=== PATIENT | male | born 1990 | race Caucasian/White ===

== ENCOUNTER 2017-11-16 01:45 | Emergency (ER) | payer SELFPAY ==
--- NOTE | 2017-11-16 02:20 | ER Document Report ---
ED Psych Disorder / Suicide - General Chief Complaint: Psych Problem Stated Complaint: IVC Time Seen by Provider: 11/16/17 02:14 Mode of Arrival: Ambulatory Information source: Patient Notes: This is a 27-year-old man with an unspecified bipolar disorder who is brought in by the Global Clinical Leader as an IVC with paperwork filled out by the financial investment manager. Patient was reportedly threatening and hostile to his parents. The patient appears delusional and states that he is not sure why his parents are conspiring against him. 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 He denies any suicidal ideation he denies any homicidal ideation he denies any hallucinations. TRAVEL OUTSIDE OF THE [place] IN LAST 30 DAYS: No - HPI Patient complains to provider of: Aggression, Agitated Onset: Just prior to arrival Onset was: Sudden Quality of pain: No pain Severity: None Pain Level: Denies Suicide Risk Factors: Bipolar, Frightened friends/family Situational problems related to: Parent Injury to: No: Generalized, Abdomen, Ankle, Back, Breast, Buttocks, Chest, Elbow , Epigastric, Flank, Face, Finger, Foot, Hand, Head, Hip, Knee, Leg, Lower extremity, Mouth, Neck, Pelvic, Penis, Perineum, Rectum, Shoulder, Testicle, Thigh, Throat, Trunk, Upper extremity, Vagina, Wrist Normal mood: No Associated symptoms: Aggressive Similar symptoms previously: Yes Recently seen / treated by doctor: No - Related Data Allergies/Adverse Reactions: No Known Allergies Allergy (Unverified 06/20/15 00:47) Past Medical History - General Information source: Patient, Law Enforcement - Social History Smoking Status: Never Smoker Cigarette use (# per day): No Chew tobacco use (# tins/day): No Frequency of alcohol use: None Drug Abuse: None Lives with: Family Family History: Reviewed & Not Pertinent Patient has suicidal ideation: No Patient has homicidal ideation: No - Medical History Medical History: Negative Psychiatric Medical History: Reports: Hx Attention Deficit Hyperactivity Disorder - Treated for it but patient does not believe he has it, Hx Depression Surgical Hx: Negative - Immunizations Hx Diphtheria, Pertussis, Tetanus Vaccination: Yes Review of Systems - Review of Systems Constitutional: denies: Chills, Fever EENT: No symptoms reported Cardiovascular: No symptoms reported Respiratory: No symptoms reported Gastrointestinal: No symptoms reported Genitourinary: No symptoms reported Male Genitourinary: No symptoms reported Musculoskeletal: No symptoms reported Skin: No symptoms reported Hematologic/Lymphatic: No symptoms reported Neurological/Psychological: See HPI Physical Exam - Vital signs Vitals: Temp Pulse Resp BP Pulse Ox 98.6 F 97 15 144/82 H 97 11/16/17 02:05 11/16/17 02:05 11/16/17 02:05 11/16/17 02:05 11/16/17 02:05 Notes: Physical exam: GENERAL: 7-year-old man, alert and oriented 3, no acute distress HEAD: Atraumatic, normocephalic. EYES: Pupils equal round and reactive to light, extraocular movements intact, sclera anicteric, conjunctiva are normal. ENT: TMs normal, nares patent, oropharynx clear without exudates. Moist mucous membranes. NECK: Normal range of motion, supple without obvious mass or JVD. LUNGS: Breath sounds clear to auscultation bilaterally and equal. No wheezes rales or rhonchi. HEART: Regular rate and rhythm without murmurs, rubs or gallops. ABDOMEN: Soft, normoactive bowel sounds. No tenderness to palpation. No guarding, no rebound. No masses appreciated. EXTREMITIES: Normal range of motion, no pitting or edema. No clubbing or cyanosis. NEUROLOGICAL: Cranial nerves II through XII grossly intact. Normal speech, moving all extremities. PSYCH: Patient does appear to be delusional at this time. SKIN: Warm, Dry, normal turgor, no rashes or lesions noted. Course - Re-evaluation Re-evalutation: 11/16/17 03:23 The patient is medically stable for psychiatric transfer or discharge. - Vital Signs Vital signs: Temp Pulse Resp BP Pulse Ox 98.6 F 92 16 144/82 H 100 11/16/17 02:08 11/16/17 02:08 11/16/17 02:08 11/16/17 02:08 11/16/17 02:08 - Laboratory Result Diagrams: 11/16/17 02:00 11/16/17 02:00 Laboratory results interpreted by me: 11/16/17 11/16/17 02:00 02:00 WBC 11.2 H RBC 5.75 H Hgb 17.3 H Absolute Neutrophils 8.5 H Calcium 10.4 H Total Bilirubin 1.5 H ALT 87 H Total Protein 8.4 H Albumin 5.2 H Salicylates < 1.0 L Acetaminophen < 10 L - EKG Interpretation by Me Rate: Tachycardia Rhythm: NSR - EKG shows sinus tachycardia with a ventricular rate of 100, no acute ST-T wave changes. Discharge - Discharge Clinical Impression: Aggressive behavior, Delusions Condition: Stable Disposition: PSYCH HOSP/UNIT
[2017-11-16 02:33] LABS: ABSOLUTE BASOPHILS # (AUTO) 0.1 10^3/uL (0.0-0.2); ABSOLUTE EOSINOPHILS # (AUTO) 0.1 10^3/uL (0.0-0.6); ABSOLUTE MONOCYTES (AUTO) 0.6 10^3/uL (0.1-1.4); ABSOLUTE NEUT (AUTO) 8.5 10^3/uL (1.7-8.2); BASOPHILS % (AUTO) 0.5 % (0-2); EOSINOPHILS % (AUTO) 0.7 % (0-6); HEMATOCRIT 49.5 % (37.9-51.0); HEMOGLOBIN 17.3 g/dL (13.5-17.0); LYMPHOCYTES % (AUTO) 17.6 % (13-45); MEAN CORPUSCULAR HEMOGLOBIN 30.1 pg (27.0-33.4); MEAN CORPUSCULAR HGB CONC 34.9 g/dL (32.0-36.0); MEAN CORPUSCULAR VOLUME 86 fl (80-97); MONOCYTES % (AUTO) 5.7 % (3-13); PLATELET COUNT 397 10^3/uL (150-450); RED BLOOD COUNT 5.75 10^6/uL (4.35-5.55); RED CELL DISTRIBUTION WIDTH 12.7 % (11.5-14.0); SEGMENTED NEUTROPHILS % (AUTO) 75.5 % (42-78); TOTAL CELLS COUNTED % (AUTO) 100 %; WHITE BLOOD COUNT 11.2 10^3/uL (4.0-10.5)
[2017-11-16 02:47] LABS: APPEARANCE,URINE CLEAR; BILIRUBIN,URINE NEGATIVE (NEGATIVE); COLOR,URINE YELLOW; GLUCOSE, URINE NEGATIVE (NEGATIVE); KETONES,URINE NEGATIVE (NEGATIVE); LEUKOCYTE ESTERASE,URINE NEGATIVE (NEGATIVE); NITRITE,URINE NEGATIVE (NEGATIVE); PROTEIN,URINE NEGATIVE (NEGATIVE); URINE SPECIFIC GRAVITY 1.008; UROBILINOGEN,URINE NEGATIVE mg/dL (<2.0)
[2017-11-16 02:58] LABS: ALANINE AMINOTRANSFERASE 87 U/L (21-72); ALBUMIN 5.2 g/dL (3.5-5.0); ALKALINE PHOSPHATASE 65 U/L (38-126); ANION GAP 14 (5-19); ASPARTATE AMINO TRANSFERASE 55 U/L (17-59); BILIRUBIN,DIRECT 0.4 mg/dL (0.0-0.4); BILIRUBIN,TOTAL 1.5 mg/dL (0.2-1.3); BLOOD UREA NITROGEN 11 mg/dL (7-20); CALCIUM 10.4 mg/dL (8.4-10.2); CARBON DIOXIDE 29 mmol/L (22-30); CHLORIDE 100 mmol/L (98-107); GLUCOSE 99 mg/dL (75-110); POTASSIUM 4.4 mmol/L (3.6-5.0); SODIUM 143.3 mmol/L (137-145); TOTAL PROTEIN 8.4 g/dL (6.3-8.2)
[2017-11-16 03:01] LABS: ACETAMINOPHEN < 10 ug/mL (10-30); ALCOHOL < 10 mg/dL (NONE DETECTED); SALICYLATE < 1.0 mg/dL (2.0-20.0)
[2017-11-16 03:58] LABS: URINE AMPHETAMINES SCREEN NEGATIVE; URINE BARBITURATES SCREEN NEGATIVE; URINE BENZODIAZEPINES SCREEN NEGATIVE; URINE COCAINE SCREEN NEGATIVE; URINE MARIJUANA (THC) SCREEN NEGATIVE; URINE METHADONE SCREEN NEGATIVE; URINE PHENCYCLIDINE SCREEN NEGATIVE
--- NOTE | 2017-11-16 10:59 | ER Document Report ---
Doctor's Note Notes: 11/16/17 10:58 Rounds: Chart reviewed and patient interviewed. Patient thinks he is here because he was exercising his right to self-defense. He says that he was erroneously diagnosed with bipolar disorder and treated with medications that did not work. Patient's labs were essentially normal except for a white count of 11,200 which he does not appear to be significant clinically. Vital signs are all normal. Patient is being evaluated for bipolar disorder under IVC. Patient appears to be medically stable for transfer or discharge. Mariam Arias MD 11/16/17 18:19 Patient is complaining of some pain in the back of his neck. I do not think this is related to his Haldol since he is only had a small amount and is also had Cogentin. He says that he is been having this issue for quite some time off and on. Still am going to give him Benadryl and see if that helps his symptoms and may sedate him a little bit too. Mariam Arias MD
[2017-11-16] MEDS ORDERED: HYDROXYZINE PAMOATE 50 MG CAPSULE PO PRN (11:29)
[2017-11-16] MEDS ORDERED: BENZTROPINE MESYLATE 1 MG TABLET PO SCH (11:30)
[2017-11-16] MEDS ORDERED: HALOPERIDOL 5 MG TABLET PO SCH (11:30)
[2017-11-16] MEDS: HYDROXYZINE PAMOATE 50 MG CAPSULE PO PRN ×2 (13:09→21:02)
[2017-11-16] MEDS ORDERED: HALOPERIDOL 5 MG TABLET PO ONE (13:30)
[2017-11-16] MEDS ORDERED: BENZTROPINE MESYLATE 1 MG TABLET PO ONE (13:30)
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
--- NOTE | 2017-11-16 17:23 | EKG REPORT ---
SEVERITY:- OTHERWISE NORMAL ECG - SINUS TACHYCARDIA : Confirmed by: Franco Hassan 16-Nov-2017 17:22:35
[2017-11-16] MEDS ORDERED: DIPHENHYDRAMINE HCL 50 MG CAPSULE PO ONE (18:14)
[2017-11-16] MEDS: HALOPERIDOL 5 MG TABLET PO SCH (21:03)
[2017-11-17] MEDS: HALOPERIDOL 5 MG TABLET PO SCH (10:16)
--- NOTE | 2017-11-17 10:56 | ER Document Report ---
Doctor's Note Notes: 11/17/17 10:22 Patient is still stating that he does not understand why he is here, he was only defending his property, attempts to "various laws in legal terms to defend himself. States that he does feel a little bit groggy. Is used to drinking 3 cups of coffee a day instead of 2. Patient will be provided with a second cup of coffee. Medications will be continued as well, this is likely with making him feel groggy and he understands this. Patient will let me know if he develops any other symptoms. At present has no other complaints, denies nausea , vomiting, diarrhea, sore throat, runny nose, headache. Heart is regular rate and rhythm with no murmurs gallops or rubs, lungs are clear to auscultation bilaterally without any respiratory distress, abdomen is soft nontender nondistended with normal bowel sounds. 11/17/17 18:45 Patient accepted an inpatient psychiatric facility, transferred by Info Analyst's department.
[2017-11-17] MEDS ORDERED: HALOPERIDOL DECANOATE INJ 100 MG/1 ML VIAL IM PRN (10:58)
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
[2017-11-17 14:20] VITALS: BP 122/69
== END 2017-11-17 14:44 ==
LOC: ER 01:45
DX: F29 Unspecified psychosis not due to a substance or known physiological condition (principal); F22 Delusional disorders; F91.1 Conduct disorder, childhood-onset type
CPT/HCPCS: 36415; 80053; 80307; 81001; 84443; 85025; 93005; 93010; 99285

== ENCOUNTER 2018-06-06 20:59 | Emergency (ER) | payer MEDICAID, OTHER ==
[2018-06-06 22:55] LABS: ABSOLUTE BASOPHILS # (AUTO) 0.1 10^3/uL (0.0-0.2); ABSOLUTE EOSINOPHILS # (AUTO) 0.2 10^3/uL (0.0-0.6); ABSOLUTE LYMPHOCYTES (AUTO) 2.4 10^3/uL (0.5-4.7); ABSOLUTE MONOCYTES (AUTO) 0.5 10^3/uL (0.1-1.4); ABSOLUTE NEUT (AUTO) 4.4 10^3/uL (1.7-8.2); BASOPHILS % (AUTO) 0.8 % (0-2); EOSINOPHILS % (AUTO) 2.8 % (0-6); HEMATOCRIT 41.2 % (37.9-51.0); HEMOGLOBIN 14.2 g/dL (13.5-17.0); LYMPHOCYTES % (AUTO) 31.9 % (13-45); MEAN CORPUSCULAR HEMOGLOBIN 29.8 pg (27.0-33.4); MEAN CORPUSCULAR HGB CONC 34.5 g/dL (32.0-36.0); MEAN CORPUSCULAR VOLUME 86 fl (80-97); MONOCYTES % (AUTO) 7.2 % (3-13); PLATELET COUNT 336 10^3/uL (150-450); RED BLOOD COUNT 4.77 10^6/uL (4.35-5.55); RED CELL DISTRIBUTION WIDTH 13.7 % (11.5-14.0); SEGMENTED NEUTROPHILS % (AUTO) 57.3 % (42-78); TOTAL CELLS COUNTED % (AUTO) 100 %; WHITE BLOOD COUNT 7.7 10^3/uL (4.0-10.5)
[2018-06-06 23:02] LABS: ALANINE AMINOTRANSFERASE 30 U/L (21-72); ALKALINE PHOSPHATASE 60 U/L (38-126); ANION GAP 13 (5-19); ASPARTATE AMINO TRANSFERASE 29 U/L (17-59); BILIRUBIN,DIRECT 0.2 mg/dL (0.0-0.4); BILIRUBIN,TOTAL 0.9 mg/dL (0.2-1.3); BLOOD UREA NITROGEN 9 mg/dL (7-20); CALCIUM 9.4 mg/dL (8.4-10.2); CARBON DIOXIDE 26 mmol/L (22-30); CHLORIDE 101 mmol/L (98-107); GLUCOSE 88 mg/dL (75-110); POTASSIUM 3.9 mmol/L (3.6-5.0); SODIUM 140.3 mmol/L (137-145); TOTAL PROTEIN 7.1 g/dL (6.3-8.2)
[2018-06-06 23:05] LABS: ACETAMINOPHEN < 10 ug/mL (10-30); ALCOHOL < 10 mg/dL (NONE DETECTED); SALICYLATE < 1.0 mg/dL (2.0-20.0)
--- NOTE | 2018-06-07 04:22 | ER Document Report ---
ED Psych Disorder / Suicide - General Chief Complaint: Psych Problem Stated Complaint: IVC Time Seen by Provider: 06/06/18 21:59 TRAVEL OUTSIDE OF THE [place] IN LAST 30 DAYS: No - HPI Patient complains to provider of: Bizarre behavior, Hallucinating, Other - This is a 28-year-old man who presents on involuntary commitment for evaluation of poor insight as well as tangential thought and what appears to be a worsening of his schizophrenia. He states that he is entitled to self-defense if he has been having difficulty because he feels as if his rights are being infringement upon that he might need to be resistant. He denies any desire to harm himself but does note that he has the right to harm others and self defense and apparently has verbalized her desire to harm multiple people including but not limited to the president as well as any Marine that he sees. He denies any use of substances but does note that he takes spices including saffron. Denies any medication use at this time says that he has no health problems. - Related Data Allergies/Adverse Reactions: No Known Allergies Allergy (Unverified 06/20/15 00:47) Past Medical History - General Information source: Patient - Social History Smoking Status: Current Some Day Smoker Chew tobacco use (# tins/day): No Family History: Reviewed & Not Pertinent Patient has suicidal ideation: No Patient has homicidal ideation: Yes Renal/ Medical History: Denies: Hx Peritoneal Dialysis Psychiatric Medical History: Reports: Hx Attention Deficit Hyperactivity Disorder - Treated for it but patient does not believe he has it, Hx Depression - Immunizations Hx Diphtheria, Pertussis, Tetanus Vaccination: Yes Review of Systems - Review of Systems -: Yes All other systems reviewed and negative Physical Exam - General General appearance: Appears well In distress: None - HEENT Head: Normocephalic Eyes: Normal Conjunctiva: Normal - Respiratory Respiratory status: No respiratory distress Chest status: Nontender Breath sounds: Normal - Cardiovascular Rhythm: Regular Heart sounds: Normal auscultation - Abdominal Inspection: Normal Bowel sounds: Normal - Extremities General upper extremity: Normal inspection General lower extremity: Normal inspection - Neurological Neuro grossly intact: Yes Orientation: AAOx4 Tenzin Coma Scale Eye Opening: Spontaneous Tenzin Coma Scale Verbal: Oriented - Psychological Associated symptoms: Circumferential speech, Flight of ideas, Tangential speech Course - Re-evaluation Re-evalutation: 06/07/18 04:21 This patient presents on IVC for what appears to be worsening of his schizophrenia. Because of his poor insight tangential thought process and refusal to acknowledge that he does have mental health illness believe he does represent a danger to himself as well as others he has stated multiple times that he does have a right to defend himself if his lipids are infringement upon. Denies access to weapons at this time. Repeatedly has flight of ideas and is difficult to redirect during conversation. Because of the difficulty in obtaining history from this young man I do believe that it is important to see mild health professional. He would likely benefit from medication though it is uncertain which at this time. We will plan for evaluation of the psychiatry service reassessment and potential placement. - Laboratory Result Diagrams: 06/06/18 21:35 06/06/18 21:35 Laboratory results interpreted by me: 06/06/18 21:35 Salicylates < 1.0 L Acetaminophen < 10 L Discharge - Discharge Referrals: MARIA DOLORES OSMAN MD [Primary Care Provider] - Follow up as needed
[2018-06-07 06:53] VITALS: BP 109/62
--- NOTE | 2018-06-07 10:13 | ER Document Report ---
Doctor's Note Notes: 06/07/18 10:12 Medical rounds: Chart reviewed and patient interviewed briefly. Vital signs are normal. Laboratory values are satisfactory. On examination, patient is alert, oriented, and somewhat cooperative. He did appear to be reluctant to answer some questions. He denied any somatic complaint. He appears to be medically stable at this time. Evaluation by psychosocial team is pending.
--- NOTE | 2018-06-07 11:20 | PSYCHOLOGICAL NOTE ---
Psych Note - Psych Note Psych Note: Patient was accepted at [facility] by Dr. Mary prior to psych evaluation. Patient is diagnosed with paranoid schizophrenia. 1 295.90 (F20.9) Schizophrenia, Paranoid Type, Multiple Episodes, Currently in Acute Episode
--- NOTE | 2018-06-07 11:37 | EKG REPORT ---
SEVERITY:- NORMAL ECG - SINUS RHYTHM : Confirmed by: Ana María Matt MD 07-Jun-2018 11:36:45
== END 2018-06-07 12:29 ==
LOC: ER 20:59
DX: F20.0 Paranoid schizophrenia (principal); R41.0 Disorientation, unspecified; F17.200 Nicotine dependence, unspecified, uncomplicated
CPT/HCPCS: 36415; 80053; 80307; 85025; 93005; 93010; 99285

== ENCOUNTER 2018-11-10 07:35 | Emergency (ER) | payer MEDICAID, OTHER ==
[2018-11-10 07:49] VITALS: BP 128/64
[2018-11-10] MEDS ORDERED: BUPIVACAINE HCL 0.5 % INJ/PF 30 ML SDV INJ ONE (08:08)
[2018-11-10] MEDS ORDERED: LIDOCAINE 1% INJ-PF (10 MG/ML) 30 ML SDV INJ ONE (08:09)
--- NOTE | 2018-11-10 08:38 | RADIOLOGY REPORT (SQ) ---
EXAM DESCRIPTION: FINGER LEFT COMPLETED DATE/TIME: 11/10/2018 8:28 am REASON FOR STUDY: laceration pain COMPARISON: None. NUMBER OF VIEWS: Three views. TECHNIQUE: AP, lateral, and oblique images acquired of the left second finger. LIMITATIONS: None. FINDINGS: MINERALIZATION: Normal. BONES: Comminuted fracture of the tuft of the seconds digit. SOFT TISSUES: There is 1 radiodensity present which could possibly represent foreign body. More like ly related to the generally comminuted tuft fracture. OTHER: No other significant finding. IMPRESSION: Comminuted fracture of the tuft of the seconds digit. TECHNICAL DOCUMENTATION: JOB ID: [id number]- All Rights Reserved Reading location - IP/workstation name: [email or web address]
--- NOTE | 2018-11-10 08:44 | ER Document Report ---
ED General <ASHIA BUTLER - Last Filed: 11/10/18 08:50> - General TRAVEL OUTSIDE OF THE [place] IN LAST 30 DAYS: No - HPI Patient complains to provider of: Left index finger <YASH MAYA - Last Filed: 11/10/18 09:40> - General Chief Complaint: Laceration Stated Complaint: LACERATION ON LEFT HAND Time Seen by Provider: 11/10/18 08:03 - HPI Notes: Patient coming in for laceration to the left index finger states happened just prior to his arrival. Patient states he cut it on some glass. Patient otherwise denies any other injuries. Patient is resting comfortably upon my evaluation patient denies any fever chills nausea vomiting diarrhea. Patient states tetanus may have been within the last 10 years otherwise is unsure. Bleeding is controlled resting comfortably upon my evaluation. (YASH MAYA) - Related Data Allergies/Adverse Reactions: No Known Allergies Allergy (Verified 11/10/18 07:38) Past Medical History - Social History Smoking Status: Unknown if Ever Smoked Family History: Reviewed & Not Pertinent Patient has suicidal ideation: No Patient has homicidal ideation: No Renal/ Medical History: Denies: Hx Peritoneal Dialysis Psychiatric Medical History: Reports: Hx Attention Deficit Hyperactivity Disorder - Treated for it but patient does not believe he has it, Hx Depression - Immunizations Hx Diphtheria, Pertussis, Tetanus Vaccination: Yes <YASH MAYA - Last Filed: 11/10/18 09:40> Review of Systems - Review of Systems Constitutional: No symptoms reported EENT: No symptoms reported Cardiovascular: No symptoms reported Respiratory: No symptoms reported Gastrointestinal: No symptoms reported Genitourinary: No symptoms reported Male Genitourinary: No symptoms reported Musculoskeletal: Other - Laceration Skin: No symptoms reported Hematologic/Lymphatic: No symptoms reported Neurological/Psychological: No symptoms reported -: Yes All other systems reviewed and negative <YASH MAYA - Last Filed: 11/10/18 09:40> Physical Exam - Vital signs Interpretation: Normal - General General appearance: Appears well, Alert - HEENT Head: Normocephalic, Atraumatic Eyes: Normal Pupils: PERRL - Respiratory Respiratory status: No respiratory distress Chest status: Nontender Breath sounds: Normal Chest palpation: Normal - Cardiovascular Rhythm: Regular Heart sounds: Normal auscultation Murmur: No - Abdominal Inspection: Normal Distension: No distension Bowel sounds: Normal Tenderness: Nontender Organomegaly: No organomegaly - Back Back: Normal, Nontender - Extremities General upper extremity: Nontender, Normal color, Normal ROM, Normal temperature. No: Normal inspection - Patient has a laceration to the left index finger through the nail bed with nail bed exposed. Capillary refill was intact distal to the wound General lower extremity: Normal inspection, Nontender, Normal color, Normal ROM, Normal temperature, Normal weight bearing. No: Vikas's sign - Neurological Neuro grossly intact: Yes Cognition: Normal Orientation: AAOx4 [place] Coma Scale Eye Opening: Spontaneous [place] Coma Scale Verbal: Oriented [place] Coma Scale Motor: Obeys Commands [place] Coma Scale Total: 15 Speech: Normal Motor strength normal: LUE, RUE, LLE, RLE Sensory: Normal - Psychological Associated symptoms: Normal affect, Normal mood - Skin Skin Temperature: Warm Skin Moisture: Dry Skin Color: Normal <YASH MAYA - Last Filed: 11/10/18 09:40> - Vital signs Vitals: Temp Pulse Resp BP Pulse Ox 98.2 F 70 16 128/64 H 98 11/10/18 07:47 11/10/18 07:47 11/10/18 07:47 11/10/18 07:47 11/10/18 07:47 Course <YASH MAYA - Last Filed: 11/10/18 09:40> - Re-evaluation Re-evalutation: 11/10/18 09:39 Wound was cared for as noted no foreign body was seen on exploration of the wound patient was given order follow-up placed in a finger protection splint. Patient was discharged home. Because of the fracture and the proximity of the wound will cover with antibiotics. (YASH MAYA) - Vital Signs Vital signs: Temp Pulse Resp BP Pulse Ox 98.2 F 64 16 128/64 H 100 11/10/18 07:47 11/10/18 09:28 11/10/18 09:28 11/10/18 07:47 11/10/18 09:28 Procedures - Laceration/Wound Repair Left Finger 2nd digit Time completed: 08:50 Wound length (cm): 1 - no true laceration, nail lifted at base Wound's Depth, Shape: Nail-avulsed - nail base lifted above skin Laceration pre-procedure: Sterile PPE donned, Chloraprep applied, Sterile drapes applied Anesthetic type: 1% Lidocaine Volume Anesthetic (mLs): 5 - digital block Wound explored: Clean, No foreign body removed Irrigated w/ Saline (mLs): 60 Wound Debrided: Minimal Wound Repaired With: Dermabond Post-procedure wound care: Sterile dressing applied, Splint applied Post-procedure NV exam normal: Yes Complications: No <ASHIA BUTLER - Last Filed: 11/10/18 08:50> - Immobilization Left 2nd digit Immobilizer type: Finger protection Performed by: PCT Post-Proc Neuro Vasc Exam: Normal Alignment checked and good: Yes <YASH MAYA - Last Filed: 11/10/18 09:40> Discharge <ASHIA BUTLER - Last Filed: 11/10/18 08:50> <YASH MAYA - Last Filed: 11/10/18 09:40> - Discharge Clinical Impression: Closed fracture of tuft of distal phalanx of finger Laceration of nail bed of finger Qualifiers: Encounter type: initial encounter Qualified Code(s): S61.319A - Laceration without foreign body of unspecified finger with damage to nail, initial encounter Condition: Good Disposition: HOME, SELF-CARE Instructions: Laceration Care ([facility]), Prophylactic Antibiotic ([facility]), Tuft Fracture of the Finger ([facility]) Additional Instructions: Please take the antibiotic as prescribed. Return to ER symptoms worsen follow- up with your primary care physician for further evaluation and suture removal. Sutures should be removed in 7-10 days. I would recommend keeping the wound clean dressing with antibiotic ointment. Please follow-up with orthopedic surgeon provided for further evaluation of your finger fracture. Prescriptions: Ibuprofen [Motrin 600 mg Tablet] 600 mg PO Q8HP PRN #21 tablet PRN Reason: Cephalexin Monohydrate [Keflex 500 mg Capsule] 500 mg PO Q6H 7 Days capsule Forms: Return to Work Referrals: MARIA DOLORES OSMAN MD [Primary Care Provider] - Follow up as needed KYLEE SAAVEDRA DO [ACTIVE STAFF] - Follow up as needed
[2018-11-10] MEDS ORDERED: DIPH/PERTUSS(ACELL)/TETANUS VAC/PF 0.5 ML SYR (>=10YO) IM ONE (08:50)
[2018-11-10] MEDS ORDERED: CEPHALEXIN 500 MG CAPSULE PO ONE (08:55)
== END 2018-11-10 09:28 | disposition home or self-care (01) ==
LOC: ER 07:35
PROC: 0HQGXZZ Repair Left Hand Skin, External Approach (ICD-10-PCS; principal; 2018-11-10)
DX: S62.631A Displaced fracture of distal phalanx of left index finger, initial encounter for closed fracture (principal); S61.319A Laceration without foreign body of unspecified finger with damage to nail, initial encounter; W25.XXXA Contact with sharp glass, initial encounter
CPT/HCPCS: 99283; 73140; 90715; 12001; J3490

== ENCOUNTER 2019-01-17 22:06 | Emergency (ER) | payer MEDICAID ==
--- NOTE | 2019-01-17 22:38 | ER Document Report ---
ED General - General Chief Complaint: Psych Problem Stated Complaint: IVC Time Seen by Provider: 01/17/19 22:32 Primary Care Provider: MARIA DOLORES OSMAN MD [Primary Care Provider] - Follow up as needed Notes: Patient is a 28-year-old male with history of schizoaffective disorder that presents to the emergency department for chief complaint of delusions and paranoia. Patient states that he has been seeing lights in his backyard, has been distraught, and has been talking with the [employer] and defensive agencies, and feels that people are watching him. He went over to his parents house and was rather distraught he says and if they are concerned, and therefore filled out IVC paperwork, and he was brought to the emergency department. He denies currently taking any medications. He denies any recent drug use, he admits to occasional alcohol use but none today. He denies any suicidal or homicidal ideations. Past Medical History: Manic disorder, schizoaffective Past Surgical History: Denies any surgical history Social History: Denies tobacco use, and admits to occasional alcohol use, denies illicit drug use Family History: Reviewed and noncontributory for presenting illness Allergies: Reviewed, see documented allergy list. REVIEW OF SYSTEMS: Other than noted above, the 12 point review of systems was reviewed with the patient and were negative, all pertinent findings are included in the HPI. PHYSICAL EXAMINATION: Vital signs reviewed, nursing noted reviewed. GENERAL: Well-appearing, well-nourished and in no acute distress. HEAD: Atraumatic, normocephalic. EYES: Eyes appear normal, extraocular movements intact, sclera anicteric, conjunctiva are normal. ENT: nares patent, oropharynx clear without exudates. Moist mucous membranes. NECK: Normal range of motion, supple without lymphadenopathy LUNGS: Breath sounds clear to auscultation bilaterally and equal. No wheezes rales or rhonchi. HEART: Regular rate and rhythm without murmurs ABDOMEN: Soft, nontender, normoactive bowel sounds. No rebound, guarding, or rigidity. No masses appreciated. EXTREMITIES: Nontender, good range of motion, no pitting or edema. NEUROLOGICAL: No focal neurological deficits. Moves all extremities sponta neously Motor and sensory grossly intact on exam. PSYCH: Patient has a bizarre affect, and is eliciting paranoid delusions at this time. SKIN: Warm, Dry, normal turgor, no rashes or lesions noted on exposed skin TRAVEL OUTSIDE OF THE [place] IN LAST 30 DAYS: No - Related Data Allergies/Adverse Reactions: No Known Allergies Allergy (Verified 11/10/18 07:38) Past Medical History - General Information source: Patient - Social History Smoking Status: Never Smoker Family History: Reviewed & Not Pertinent Renal/ Medical History: Denies: Hx Peritoneal Dialysis Psychiatric Medical History: Reports: Hx Attention Deficit Hyperactivity Disorder - Treated for it but patient does not believe he has it, Hx Depression - Immunizations Hx Diphtheria, Pertussis, Tetanus Vaccination: Yes Physical Exam - Vital signs Vitals: Temp Pulse BP Pulse Ox 98.1 F 87 122/72 98 01/17/19 22:16 01/17/19 22:16 01/17/19 22:16 01/17/19 22:16 Course - Re-evaluation Re-evalutation: Patient seen and examined, vital signs reviewed. Medical screening testing was ordered including bloodwork, EKG, and toxicology. Results of testing were reviewed. Testing demonstrated unremarkable blood work, he was positive for marijuana which the patient did admit to when asked, he was complaining of neck pain, and wanted an x-ray, this was negative, patient was given a muscle relaxer, and trazodone for sleep and Tylenol for his neck pain. Patient has been stable from a hemodynamic standpoint. At this point I feel that the patient is medically cleared and can be further evaluated from a psychiatric standpoint for final disposition from the emergency department. Patient updated on plan of care. Laboratory 01/17/19 01/17/19 01/18/19 22:40 22:40 00:55 WBC 8.5 RBC 4.92 Hgb 15.2 Hct 43.5 MCV 89 MCH 31.0 MCHC 35.0 RDW 12.8 Plt Count 319 Seg Neutrophils % 67.1 Lymphocytes % 23.6 Monocytes % 8.0 Eosinophils % 0.6 Basophils % 0.7 Absolute Neutrophils 5.7 Absolute Lymphocytes 2.0 Absolute Monocytes 0.7 Absolute Eosinophils 0.1 Absolute Basophils 0.1 Sodium 140.6 Potassium 3.9 Chloride 99 Carbon Dioxide 28 Anion Gap 14 BUN 10 Creatinine 0.79 Est GFR ( Amer) > 60 Est GFR (Non-Af Amer) > 60 Glucose 98 Calcium 10.2 Total Bilirubin 1.4 H Direct Bilirubin 0.1 Neonat Total Bilirubin Not Reportable Neonat Direct Bilirubin Not Reportable Neonat Indirect Bili Not Reportable AST 44 ALT 33 Alkaline Phosphatase 69 Total Protein 8.3 H Albumin 4.8 Urine Color STRAW Urine Appearance CLEAR Urine pH 6.0 Ur Specific [place] 1.004 Urine Protein NEGATIVE Urine Glucose (UA) NEGATIVE Urine Ketones 20 H Urine Blood NEGATIVE Urine Nitrite NEGATIVE Urine Bilirubin NEGATIVE Urine Urobilinogen NEGATIVE Ur Leukocyte Esterase NEGATIVE Urine WBC (Auto) 0 Squamous Epi Cells Auto <1 Urine Mucus (Auto) RARE Urine Ascorbic Acid NEGATIVE Salicylates < 1.0 L Urine Opiates Screen Urine Methadone Screen Acetaminophen < 10 L Ur Barbiturates Screen Ur Phencyclidine Scrn Ur Amphetamines Screen U Benzodiazepines Scrn Urine Cocaine Screen U Marijuana (THC) Screen Serum Alcohol < 10 01/18/19 00:55 WBC RBC Hgb Hct MCV MCH MCHC RDW Plt Count Seg Neutrophils % Lymphocytes % Monocytes % Eosinophils % Basophils % Absolute Neutrophils Absolute Lymphocytes Absolute Monocytes Absolute Eosinophils Absolute Basophils Sodium Potassium Chloride Carbon Dioxide Anion Gap BUN Creatinine Est GFR ( Amer) Est GFR (Non-Af Amer) Glucose Calcium Total Bilirubin Direct Bilirubin Neonat Total Bilirubin Neonat Direct Bilirubin Neonat Indirect Bili AST ALT Alkaline Phosphatase Total Protein Albumin Urine Color Urine Appearance Urine pH Ur Specific [place] Urine Protein Urine Glucose (UA) Urine Ketones Urine Blood Urine Nitrite Urine Bilirubin Urine Urobilinogen Ur Leukocyte Esterase Urine WBC (Auto) Squamous Epi Cells Auto Urine Mucus (Auto) Urine Ascorbic Acid Salicylates Urine Opiates Screen NEGATIVE Urine Methadone Screen NEGATIVE Acetaminophen Ur Barbiturates Screen NEGATIVE Ur Phencyclidine Scrn NEGATIVE Ur Amphetamines Screen NEGATIVE U Benzodiazepines Scrn NEGATIVE Urine Cocaine Screen NEGATIVE U Marijuana (THC) Screen UNCONFIRMED POSITIVE Serum Alcohol Cervical Spine X-Ray 01/18/19 00:08 IMPRESSION: No acute abnormality. - Vital Signs Vital signs: Temp Pulse Resp BP Pulse Ox 98.1 F 87 122/72 98 01/17/19 22:16 01/17/19 22:16 01/17/19 22:16 01/17/19 22:16 - Laboratory Result Diagrams: 01/17/19 22:40 01/17/19 22:40 Laboratory results interpreted by me: 01/17/19 01/18/19 22:40 00:55 Total Bilirubin 1.4 H Total Protein 8.3 H Urine Ketones 20 H Salicylates < 1.0 L Acetaminophen < 10 L - EKG Interpretation by Me Additional EKG results interpreted by me: EKG demonstrates sinus rhythm with a ventricular rate of 60 bpm, normal axis, normal intervals, QTC was 424 ms, no evidence of acute ischemia on this EKG. Discharge - Discharge Clinical Impression: Acute psychosis Condition: Stable Disposition: PSYCH HOSP/UNIT Referrals: MARIA DOLORES OSMAN MD [Primary Care Provider] - Follow up as needed
[2019-01-17 22:55] LABS: ABSOLUTE BASOPHILS # (AUTO) 0.1 10^3/uL (0.0-0.2); ABSOLUTE EOSINOPHILS # (AUTO) 0.1 10^3/uL (0.0-0.6); ABSOLUTE MONOCYTES (AUTO) 0.7 10^3/uL (0.1-1.4); ABSOLUTE NEUT (AUTO) 5.7 10^3/uL (1.7-8.2); BASOPHILS % (AUTO) 0.7 % (0-2); EOSINOPHILS % (AUTO) 0.6 % (0-6); HEMATOCRIT 43.5 % (37.9-51.0); HEMOGLOBIN 15.2 g/dL (13.5-17.0); LYMPHOCYTES % (AUTO) 23.6 % (13-45); MEAN CORPUSCULAR VOLUME 89 fl (80-97); PLATELET COUNT 319 10^3/uL (150-450); RED BLOOD COUNT 4.92 10^6/uL (4.35-5.55); RED CELL DISTRIBUTION WIDTH 12.8 % (11.5-14.0); SEGMENTED NEUTROPHILS % (AUTO) 67.1 % (42-78); TOTAL CELLS COUNTED % (AUTO) 100 %; WHITE BLOOD COUNT 8.5 10^3/uL (4.0-10.5)
[2019-01-17 23:12] LABS: ALANINE AMINOTRANSFERASE 33 U/L (21-72); ALBUMIN 4.8 g/dL (3.5-5.0); ALKALINE PHOSPHATASE 69 U/L (38-126); ANION GAP 14 (5-19); ASPARTATE AMINO TRANSFERASE 44 U/L (17-59); BILIRUBIN,DIRECT 0.1 mg/dL (0.0-0.4); BILIRUBIN,TOTAL 1.4 mg/dL (0.2-1.3); BLOOD UREA NITROGEN 10 mg/dL (7-20); CALCIUM 10.2 mg/dL (8.4-10.2); CARBON DIOXIDE 28 mmol/L (22-30); CHLORIDE 99 mmol/L (98-107); GLUCOSE 98 mg/dL (75-110); POTASSIUM 3.9 mmol/L (3.6-5.0); SODIUM 140.6 mmol/L (137-145); TOTAL PROTEIN 8.3 g/dL (6.3-8.2)
[2019-01-17 23:14] LABS: ACETAMINOPHEN < 10 ug/mL (10-30); ALCOHOL < 10 mg/dL (NONE DETECTED); SALICYLATE < 1.0 mg/dL (2.0-20.0)
[2019-01-18] MEDS ORDERED: TRAZODONE HCL 50 MG TABLET PO ONE (00:09)
--- NOTE | 2019-01-18 00:51 | RADIOLOGY REPORT (SQ) ---
EXAM DESCRIPTION: XR SPINE 1 VIEW COMPLETED DATE/TME: 01/18/2019 00:08 CLINICAL HISTORY: 28 years, Male, neck pain COMPARISON: None. FINDINGS: No fracture or dislocation. Soft tissues are unremarkable. IMPRESSION: No acute abnormality.
[2019-01-18] MEDS ORDERED: ACETAMINOPHEN 325 MG TABLET PO ONE (01:22)
[2019-01-18 01:31] LABS: APPEARANCE,URINE CLEAR; BILIRUBIN,URINE NEGATIVE (NEGATIVE); COLOR,URINE STRAW; GLUCOSE, URINE NEGATIVE (NEGATIVE); KETONES,URINE 20 mg/dL (NEGATIVE); LEUKOCYTE ESTERASE,URINE NEGATIVE (NEGATIVE); NITRITE,URINE NEGATIVE (NEGATIVE); PROTEIN,URINE NEGATIVE (NEGATIVE); URINE SPECIFIC GRAVITY 1.004; UROBILINOGEN,URINE NEGATIVE mg/dL (<2.0)
[2019-01-18 01:46] LABS: URINE AMPHETAMINES SCREEN NEGATIVE; URINE BARBITURATES SCREEN NEGATIVE; URINE BENZODIAZEPINES SCREEN NEGATIVE; URINE COCAINE SCREEN NEGATIVE; URINE MARIJUANA (THC) SCREEN UNCONFIRMED POSITIVE; URINE METHADONE SCREEN NEGATIVE; URINE PHENCYCLIDINE SCREEN NEGATIVE
[2019-01-18] MEDS ORDERED: METHOCARBAMOL 750 MG TABLET PO ONE (02:30)
--- NOTE | 2019-01-18 10:37 | ER Document Report ---
Doctor's Note Notes: 01/18/19 9:36 Patient with no complaints or issues overnight. Taking p.o. Showering this morning AVSS Labs within normal limits Will discuss with mental health
[2019-01-18 12:35] VITALS: BP 122/59
--- NOTE | 2019-01-18 23:09 | EKG REPORT ---
SEVERITY:- NORMAL ECG - SINUS RHYTHM : Confirmed by: Franco Hassan 18-Jan-2019 23:08:07
== END 2019-01-18 12:41 ==
LOC: ER 22:06
DX: F29 Unspecified psychosis not due to a substance or known physiological condition (principal); F20.9 Schizophrenia, unspecified; M54.2 Cervicalgia
CPT/HCPCS: 93005; 99285; 36415; 80307 ×4; 85025; 80053; 81001; 72040; 93010; J3490 ×3

== ENCOUNTER 2019-03-29 19:25 | Emergency (ER) | payer OTHER, MEDICAID ==
[2019-03-29 19:37] VITALS: BP 136/75
== END 2019-03-29 21:52 | disposition left against medical advice (07) ==
LOC: ER 19:25
DX: Z53.21 Procedure and treatment not carried out due to patient leaving prior to being seen by health care provider (principal)